=== PATIENT | male | born 1975 | race Caucasian/White ===

== ENCOUNTER 2020-10-18 03:25 | Emergency (ER) | payer OTHER ==
[~2020-10-18] VITALS: Ht 188 cm; Wt 77.1 kg
[~2020-10-18 03:25] MED LIST: BENTYL 20 MG TA20 M1; CELEBREX 200 M200 M1 PO; FLEXERIL PO; HYDROCODON-ACE1 EAC7 PO; NOHOMEMEDICATIONS; NORCO 5-325 TA1 EACH PO; OMEPRAZOLE40 MG
[2020-10-18 04:56] VITALS: BP 132/78
== END 2020-10-18 04:57 | disposition home or self-care (01) ==
LOC: M.ERS 03:25
DX: R51.9 Headache, unspecified (principal); R10.12 Left upper quadrant pain; I10 Essential (primary) hypertension; K21.9 Gastro-esophageal reflux disease without esophagitis; F17.210 Nicotine dependence, cigarettes, uncomplicated

== ENCOUNTER 2021-11-02 02:49 | Emergency (ER) | payer OTHER ==
[~2021-11-02] VITALS: Ht 188 cm; Wt 80.7 kg
[2021-11-02] MEDS ORDERED: COZAAR 25 MG TA25 MG PO (03:05)
[2021-11-02 04:13] VITALS: BP 137/95
== END 2021-11-02 04:14 | disposition home or self-care (01) ==
LOC: M.ERS 02:49
DX: R04.0 Epistaxis (principal); I10 Essential (primary) hypertension; F32.9 Major depressive disorder, single episode, unspecified; K21.9 Gastro-esophageal reflux disease without esophagitis; Z79.899 Other long term (current) drug therapy; Z91.048 Other nonmedicinal substance allergy status